=== PATIENT | female | born 1960 | race Caucasian/White ===

== ENCOUNTER 2019-01-28 09:37 | Emergency (ER) | payer SELFPAY ==
[~2019-01-28] VITALS: Ht 162.6 cm; Wt 58.1 kg
--- NOTE | 2019-01-28 10:06 | NUR ---
PT BIBS, C/O DOG BITE TO FACE, 5 CM DEEP LAC TO UNDER BOTTOM LIP, PAIN /, + BLEEDING , - N/V, - POLLOCK/ FALL PT STABLE AXOX4, NO DIFFICULTY SWALLOWING -SOB
--- NOTE | 2019-01-28 10:10 | NUR ---
PT REFUSED MD BRAYDON AWARE
[2019-01-28] MEDS ORDERED: CEFTRIAXONE 1GM BAG (ER ONLY) 50 ML IV ONE (10:16)
--- NOTE | 2019-01-28 10:21 | NUR ---
ADDENDUM: Intravenous End Time Documentation: Rocephin 1 gram IVPB: start time: 1021 am ; end time:1051 am IV site: LAC# 1 Port # 1 Normal saline 500 cc (IV-WO): start time: 1141 am ; end time: 1211 PM : IV site:LAC # 1 Port #1
--- NOTE | 2019-01-28 10:21 | NUR ---
ROCEPHIN 1G IV LEFT AC 18 GUAGE
--- NOTE | 2019-01-28 10:59 | NUR ---
LAC TO LEFT HAND PT REFUSED XRAY TO L HAND, AWARE
--- NOTE | 2019-01-28 11:41 | NUR ---
BOLUS 500 ML NS R AC
--- NOTE | 2019-01-28 13:21 | NUR ---
PT REFUSED FURTHER TREATMENT, DR JOSELUIS YUEN AWARE
[2019-01-28 13:23] VITALS: BP 128/82
--- NOTE | 2019-02-09 14:24 | NUR ---
ROCEPHIN STOP TIME 1100
== END 2019-01-28 13:24 | disposition home or self-care (01) ==
LOC: ER 09:41
DX: S01.81XA Laceration without foreign body of other part of head, initial encounter (principal); S01.511A Laceration without foreign body of lip, initial encounter; W54.0XXA Bitten by dog, initial encounter; Y93.89 Activity, other specified; Y92.89 Other specified places as the place of occurrence of the external cause; Y99.8 Other external cause status
CPT/HCPCS: 96365; 99283; A4606; A6253; A6402 ×2; A6403; J0696